=== PATIENT | male | born 1960 | race Caucasian/White ===

== ENCOUNTER → 2018-01-12 | Outpatient (CLI) | payer OTHER ==
[~2018-01-12] VITALS: Ht 188 cm; Wt 145.1 kg
[~2018-01-12] MED LIST: ABILIFY30 MG PO; ADVAIR 100-501 EACH IH; ALBUTEROL2.5 MG/0.5; ALLERGY-TIME4 MG PO; AMBIEN 10 MG TA10 MG PO; AMBIEN 5 MG TABL5 M1 OR; ANTACID500 MG OR; APHEN325 MG PO; ASPIRIN EC81 M1 OR; BACLOFEN 10 MG10 MG PO; BACTROBAN CREAM30 G1; BACTROBAN15 GM; BENADRYL25 MG; CHLORASEPTIC177 ML; COLACE 100 MG100 MG OR; COLCRYS OR; COMBIVENT PO; COMPAZINE25 MG RE; CONSTULOSE10 GM/152 PO; CORRECTOL5 MG PO; COUGH DROPS3.1 MG PO; CYMBALTA60 MG PO; DESITIN113 GM; DESONIDE CR. 1515 G1; EFFEXOR XR75 MG PO; FLORANEX TABLE1 EACH OR; GENERLAC OR; GLYCOLAX POWDER17 G1 OR; HYDROCODON-ACE1 EAC5 PO; KEFLEX500 MG PO; LOPERAMIDE 2 MG2 M1 PO; MOBIC15 MG OR; MORPHINE SULFAT15 M1 OR; MULTIVITAMINS PO; NITROGLYCERIN0.4 MG; OMEPRAZOLE 20 M20 M1 PO; ONDANSETRON HCL4 M3 PO; ONDANSETRON ODT4 MG OR; OXYCODONE HCL15 MG OR; PLAVIX 75 MG TA75 MG OR; PROTONIX40 M2 OR; PSEUDOEPHEDRINE60 M1 PO; RENO OR; RENVELA800 MG OR; RENVELA800 MG PO; ROXICODONE5 M1 PO; SENNA CONCENTR8.6 MG OR; SIMVASTATIN40 MG OR; SINGULAIR 10 MG10 M1 PO; SPIRIVA; SUPRAX400 M1 PO; TRAZODONE 150150 M1 PO; TRIAMCINOLONE 080 G3; [UNRECOGNIZED DRUG - SUPPLY]; [UNRECOGNIZED DRUG - SUPPLY] OR
[2018-01-12 12:34] VITALS: BP 155/69
== END | disposition home or self-care (01) ==
LOC: SPEC 07:58
DX: T82.858A Stenosis of other vascular prosthetic devices, implants and grafts, initial encounter (principal); I12.0 Hypertensive chronic kidney disease with stage 5 chronic kidney disease or end stage renal disease; N18.6 End stage renal disease; E78.00 Pure hypercholesterolemia, unspecified; D64.9 Anemia, unspecified; E66.09 Other obesity due to excess calories; G47.33 Obstructive sleep apnea (adult) (pediatric); M19.90 Unspecified osteoarthritis, unspecified site; G89.29 Other chronic pain; K21.9 Gastro-esophageal reflux disease without esophagitis; Z99.2 Dependence on renal dialysis; Z98.890 Other specified postprocedural states; Z90.5 Acquired absence of kidney; Z88.2 Allergy status to sulfonamides; Z88.0 Allergy status to penicillin; Z91.041 Radiographic dye allergy status; Z79.899 Other long term (current) drug therapy; Z79.891 Long term (current) use of opiate analgesic